=== PATIENT | female | born 1975 | race Caucasian/White ===

== ENCOUNTER 2019-01-06 15:13 | Emergency (ER) | payer SELFPAY ==
[2019-01-06 16:00] LABS: #Basophils 0.1 thou/uL (0.0-0.2); #Lymphocytes 1.7 thou/uL (1.20-3.40); #Monocytes 0.5 thou/uL (0.11-0.59); #Neutrophils 3.8 thou/uL (1.40-6.50); %Eosinophils 0.8 % (0.0-10.0); %Lymphocytes 28.1 % (21.0-51.0); %Monocytes 7.4 % (0.0-10.0); %Neutrophils 62.8 % (42.0-75.0); Hemoglobin 9.7 g/dL (12.0-16.0); Mean Corpuscular HGB CONC 31.8 g/dL (32.0-36.0); Mean Corpuscular Hemoglobin 28.5 pg (27.0-31.0); Mean Corpuscular Volume 89.7 fL (78.0-98.0); Platelet Count 267 thou/uL (130-400); RBC Distribution Width 14.1 % (11.5-14.5); Red Blood Cell (RBC) Count 3.41 mill/uL (4.20-5.40)
--- NOTE | 2019-01-06 16:13 | RAD ---
CHEST ONE VIEW: HISTORY: Chest pain. COMPARISON: None. FINDINGS: The lungs are without focal air space consolidation, pneumothorax, or effusion. The cardiac silhouet te and mediastinal contour is within normal limits. No acute osseous abnormality. IMPRESSION: No acute intrathoracic abnormality. POS: TPC
[2019-01-06 16:22] LABS: ALT (SGPT) 12 U/L (8-55); AST (SGOT) 27 U/L (5-34); Albumin 4.1 g/dL (3.5-5.0); Alkaline Phosphatase 69 U/L (40-150); Anion Gap 15 mmol/L (10-20); BUN (Urea Nitrogen) 17 mg/dL (7.0-18.7); Bilirubin, Total 0.3 mg/dL (0.2-1.2); CK (CPK) 369 U/L (29-168); Calc. Creatinine Clearance 0 mL/min (70-130); Calcium 10.4 mg/dL (7.8-10.44); Carbon Dioxide 19 mmol/L (22-29); Chloride 107 mmol/L (98-107); Estimated GFR-MDRD 80; Globulin 2.7 g/dL (2.4-3.5); Glucose 89 mg/dL (70-105); Lipase 42 U/L (8-78); Protein, Total 6.8 g/dL (6.0-8.3); Sodium 137 mmol/L (136-145)
== END 2019-01-06 19:11 | disposition home or self-care (01) ==
LOC: ERS 15:13
DX: F41.9 Anxiety disorder, unspecified (principal); F15.10 Other stimulant abuse, uncomplicated; F17.210 Nicotine dependence, cigarettes, uncomplicated; J45.909 Unspecified asthma, uncomplicated; F31.9 Bipolar disorder, unspecified; M06.9 Rheumatoid arthritis, unspecified
CPT/HCPCS: 71045; 80053; 82550; 83690; 84484; 85025; 93005

== ENCOUNTER 2019-10-07 16:26 | Inpatient (IN) | payer SELFPAY ==
[2019-10-07] MEDS ORDERED: Naloxone HCl 0.4 mg/ml Vial ONE (16:44)
[2019-10-07 16:49] LABS: Pregnancy Test - Urine (BHCG) Negative (Negative); Pregu Control Background? CLEAR/WHITE (CLR/WHITE); Pregu Control Bar Appear? YES (CONTROL BAR); Specific Gravity 1.023 (1.002-1.036)
[2019-10-07 16:53] LABS: Bacteria/HPF 4+ HPF (None Seen); Bilirubin Negative (Negative); Blood, Urine 2+ (Negative); Clarity Extra Turbid (Clear); Glucose, Urine (Dipstick) Normal (Negative); Leukocyte 500 Leu/uL (Negative); Nitrite 2+ (Negative); Protein, Urine (Dipstick) 50 mg/dL (Neg-Trace); Squamous Epithelial None Seen HPF (0-3); Urobilinogen Normal mg/dL (Less than 2); WBC/HPF Greater than 50 HPF (0-3)
[2019-10-07 16:55] LABS: Amphetamine Detected (NotDetected); Barbiturates Screen Not Detected (NotDetected); Benzodiazepine Screen Detected (NotDetected); Cocaine Metabolite Screen Not Detected (NotDetected); Medtox Control Line Valid? VALID (VALID); Medtox Reader # READER 4; Methadone Not Detected (NotDetected); Methamphetamine Detected (NotDetected); Opiate Screen Not Detected (NotDetected); Oxycodone Screen Not Detected (NotDetected); Phencyclidine (PCP) Not Detected (NotDetected); THC/Cannabinoid Screen Detected (NotDetected); Tricyclic Screen Not Detected (NotDetected)
[2019-10-07 16:55] LABS: #Lymphocytes 1.2 thou/uL (1.20-3.40); #Monocytes 0.5 thou/uL (0.11-0.59); %Basophils 0.3 % (0.0-1.0); %Eosinophils 0.2 % (0.0-10.0); %Lymphocytes 10.2 % (21.0-51.0); %Monocytes 4.6 % (0.0-10.0); %Neutrophils 84.7 % (42.0-75.0); Hemoglobin 13.9 g/dL (12.0-16.0); Mean Corpuscular HGB CONC 32.7 g/dL (32.0-36.0); Mean Corpuscular Hemoglobin 31.3 pg (27.0-31.0); Mean Corpuscular Volume 95.7 fL (78.0-98.0); Mean Platelet Volume 9.5 fL (7.4-10.4); Platelet Count 221 thou/uL (130-400); RBC Distribution Width 12.7 % (11.5-14.5); Red Blood Cell (RBC) Count 4.43 mill/uL (4.20-5.40); White Blood Cell (WBC) Count 11.8 thou/uL (4.8-10.8)
--- NOTE | 2019-10-07 16:55 | RAD ---
Chest one view HISTORY: Altered mental status. COMPARISON: 01/06/2019. FINDINGS: Cardiac silhouette is magnified by projection. Pulmonary vasculature is unremarkable. Media stinum is midline. Lung apices are partially excluded. No lobar consolidation or evidence of pneumothorax. plastic finisher leads overlie the chest. IMPRESSION: No active cardiopulmonary abnormalities are demonstrated.
--- NOTE | 2019-10-07 17:18 | CT ---
EXAM: Brain CTWithout contrast: HISTORY: Altered mental status patient found down COMPARISON: None FINDINGS: No focal mass or midline shift. No intra or extra-axial hemorrhage. Sinuses and mastoids are clear of acute process. IMPRESSION: No mass or bleed or other significant acute intracranial process.
[2019-10-07] MEDS ORDERED: cefTRIAXone\\ROCEPHIN 1 GM VIAL ONE (17:33)
[2019-10-07 17:59] LABS: Analyzer IN Cardio ER; Base Excess (BEa) -0.3 mEq/L (-2.0 to +3.0); CO2 Tension 38.1 mmHg (35.0-45.0); Calcium, Ionized 1.21 mmol/L (1.12-1.30); Carboxyhemoglobin (COHb) 1.3 gm% (0.0-3.0); Hemoglobin (Hb) 13.4 g/dL (12.0-16.0); O2 Tension (PaO2) 96.9 mmHg (80.0-100.0); Potassium - ABG Lab 4.12 mmol/L (3.70-5.30); pH, Arterial 7.42 (7.35-7.45)
[2019-10-07 18:00] LABS: Puncture Site RRA
[2019-10-07 18:01] LABS: ALV-art Gradient 5.205 (0-20)
[2019-10-07 18:24] LABS: ALT (SGPT) 15 U/L (8-55); AST (SGOT) 16 U/L (5-34); Acetaminophen Less than 6.0 mcg/mL (10.0-30.0); Albumin 3.7 g/dL (3.5-5.0); Alcohol Less than 10 mg/dL (Less than 10); Alkaline Phosphatase 71 U/L (40-110); Anion Gap 9 mmol/L (10-20); BUN (Urea Nitrogen) 13 mg/dL (7.0-18.7); Bilirubin, Total 0.4 mg/dL (0.2-1.2); CK (CPK) 107 U/L (29-168); Calc. Creatinine Clearance 0 mL/min (70-130); Calcium 9.2 mg/dL (7.8-10.44); Carbon Dioxide 27 mmol/L (22-29); Chloride 105 mmol/L (98-107); Estimated GFR-MDRD 86; Globulin 2.6 g/dL (2.4-3.5); Glucose 86 mg/dL (70-105); Potassium 4.2 mmol/L (3.5-5.1); Protein, Total 6.3 g/dL (6.0-8.3); Salicylate Less than 8.0 mg/dL (15.0-30.0); Sodium 137 mmol/L (136-145)
--- NOTE | 2019-10-07 20:24 | HP ---
PRESENTING COMPLAINT: Unresponsiveness. HISTORY OF PRESENT ILLNESS: Ms. Bettina Craig is a 44-year-old female with past medical history of presumed bipolar disorder reported by the patient's boyfriend. Not on any medication and does not follow with any physician due to financial issues. Developed altered mental status this afternoon after boyfriend found very drowsy with clammy extremities. The boyfriend has also noticed that his prescription bottle of Klonopin 1 mg when missing about 30 tablets as well as his Xanax 0.5 mg was missing also about 20 to 35 tablets. He states he does not know if the patient has any history of suicidal ideation in the past. He admitted to having quarrel with the patient earlier last night. He brought the patient to the emergency room after the patient became more unresponsive. In the ED, the patient is currently unresponsive. They put her in airway. She was started on gentle IV fluid. She is able to be aroused with sternal rub now, but still nonverbal. Boyfriend denies any previous medical history. PAST MEDICAL HISTORY: Presumed borderline hypertension. Boyfriend also state the patient reports history of bipolar disorder. PAST SURGICAL HISTORY: None known to the boyfriend. HOME MEDICATIONS: None. FAMILY HISTORY: Unable to obtain. SOCIAL HISTORY: The patient is a nonsmoker. No history of alcohol or illicit drug use. Resides in the community with a boyfriend. Works as a hotel and dining room cashier. REVIEW OF SYSTEMS: Unable to obtain given the patient's altered mental status. PHYSICAL EXAMINATION: VITAL SIGNS: Current, blood pressure of 98/77, pulse of 81, respiratory rate of 18 on nasal cannula O2, and temperature afebrile at 98. GENERAL: Middle-aged female, slightly overweight, drowsy, arousable by sternal rub by tapping. HEENT: Head is atraumatic, normocephalic. Pupils equal, reactive to light. Dry oral mucosa with no discharge. NECK: No JVD. No carotid bruit. RESPIRATORY: Good air entry bilaterally. No crepitations. CARDIOVASCULAR: S1, S2. Rate and rhythm regular. ABDOMEN: Full, soft, nontender. Bowel sounds positive. EXTREMITIES: No pedal edema. No calf tenderness. NEURO: The patient is drowsy, but more arousable during interview. LABORATORY DATA: EKG, normal sinus rhythm, no ST-segment changes. WBC 11.8, hemoglobin 13, platelets 221, neutrophils 85%. ABG; pH 7.4, pO2 of 96. Potassium 4.2, sodium 137, creatinine 0.7, lactic acid 1.1, and glucose of 86. Urinalysis shows 4+ bacteria with more than 50 wbc's. Urine drug screen positive for amphetamine and methamphetamine as well as benzodiazepine and cannabinoids. Head CT negative for any intracranial pathology. Chest x-ray shows no pulmonary infiltrate. IMPRESSION: 1. Polysubstance abuse. 2. Benzodiazepine overdose. 3. Presumed history of bipolar disorder, rule out suicidal ideation. PLAN: 1. We will admit the patient to the intensive care unit/IMCU. We will start the patient on aggressive IV hydration with D5 lactated Ringer's. Continue to monitor neuro checks. Keep the patient in restraints for now. Expected mental status to continue to improve. We will keep the patient n.p.o. for now. We can resume diet when the patient is more alert and conversant. We will consult Psych for patient prior to discharge. 2. DVT prophylaxis, subcutaneous heparin. 3. Polysubstance abuse - currently, the patient will need counseling. 4. Advance directive, unable to obtain. Boyfriend indicate full code. Total time spent on review of record, discussion with the patient greater than 60 minutes. Job ID: [id number]
[2019-10-07 21:09] LABS: Troponin I Less than 0.010 ng/mL (< 0.028)
[2019-10-07] MEDS ORDERED: Ondansetron ODT 4 MG TAB SL PRN (22:38)
[2019-10-07] MEDS ORDERED: Sodium Chloride 0.9% 1,000 ML IV SCH (22:38)
[2019-10-07] MEDS ORDERED: Ondansetron PF 4 MG/2 ML Vial IVP PRN (22:38)
[2019-10-07 23:50] LABS: Troponin I Less than 0.010 ng/mL (< 0.028)
[2019-10-08 01:27] VITALS: BMI 28.9
--- NOTE | 2019-10-08 11:08 | PDOC.HOSPP ---
- Subjective Encounter Date: 10/08/19 Encounter Time: 11:06 Subjective: minimally arousable - Objective Vital Signs & Weight: Vital Signs (12 hours) Temp Pulse Ox 10/08/19 08:00 98 10/08/19 07:08 98.6 F 10/08/19 03:38 98.4 F 10/07/19 23:43 98.3 F Weight Weight 168 lb 8 oz Most Recent Monitor Data Heart Rate from ECG 94 NIBP 114/74 NIBP BP-Mean 87 Respiration from ECG 17 SpO2 98 Result Diagrams: 10/07/19 16:47 10/07/19 17:51 Additional Labs: Accuchecks 10/07/19 16:42 POC Glucose 93 - Exam Neck: no JVD Heart: RRR, no murmur Respiratory: CTAB, no wheezes Gastrointestinal: soft, non-tender, normal bowel sounds Extremities: no edema Hosp A/P (1) Benzodiazepine overdose Code(s): T42.4X1A - POISONING BY BENZODIAZEPINES, ACCIDENTAL, INIT Status: Acute (2) Polysubstance (excluding opioids) dependence Code(s): F19.20 - OTHER PSYCHOACTIVE SUBSTANCE DEPENDENCE, UNCOMPLICATED Status: Acute - Plan in no distress or respiratory compromise FU later today
--- NOTE | 2019-10-08 19:29 | CON ---
DATE OF CONSULTATION: 10/08/2019 SERVICE: Pulmonary Medicine. REASON FOR CONSULTATION: [facility] patient. HISTORY OF PRESENT ILLNESS: The patient is a 44-year-old white female, who intentionally took multiple benzodiazepines, and other substances. She presented to the emergency department and was essentially unresponsive. It is clear that she took Xanax as well as Klonopin. She had a fight with her significant other the day before. Apparently, was over her substance abuse. Ultimately, she got a hold on his medications and took a deep nap. She was watched very closely in the [facility], where her mentation slowly improved. She denies any current suicidal ideation presently. She denies any fevers, chills, cough, sputum production, nausea, or vomiting, and prior to taking these pills, she was in her usual state of health. PAST MEDICAL HISTORY: 1. Hypertension. 2. Bipolar disorder. PAST SURGICAL HISTORY: None. FAMILY HISTORY: Noncontributory. SOCIAL HISTORY: Negative for alcohol or illicit drug use. She has no significant history of smoking. Apparently, she works as a secretary receptionist. She does use multiple substances. ALLERGIES: NO KNOWN DRUG ALLERGIES. MEDICATIONS: List of her inpatient medications was reviewed. No specific updates were made. REVIEW OF SYSTEMS: General; head, ears, eyes, nose, throat; cardiovascular; respiratory; GI; ; musculoskeletal; neurologic; and skin are negative except as mentioned in the HPI. PHYSICAL EXAMINATION: VITAL SIGNS: Afebrile. Pulse 94, blood pressure 109/76, respirations 15, saturation 98%, currently on room air. GENERAL: The patient is awake and alert, in no apparent distress. LUNGS: Wonderful air entry. There is no prolonged expiratory phase. No rhonchi, wheezing, or crackles are appreciated. HEART: Normal rate, regular. ABDOMEN: Soft, nontender, nondistended. Bowel sounds are positive. MUSCULOSKELETAL: No cyanosis or clubbing. No pitting in the bilateral lower extremities. NEUROLOGIC: Grossly nonfocal. LABORATORY DATA: WBC 11.8, hemoglobin 13.9, platelets 221,000. Neutrophil count is 85%. PH 7.42, pCO2 of 38, pO2 of 97. Basic metabolic profile, liver function studies, troponin x3, magnesium, and lactate are all unremarkable. TSH 0.8. Urinalysis is positive for significant pyuria with positive nitrites. Urine is unremarkable. Urine drug screen is positive for amphetamines, methamphetamine, benzodiazepine, and cannabinoids. Blood cultures x2 are unremarkable. IMAGING DATA: 1. CT of the brain demonstrates no acute intracranial abnormality. 2. Chest x-ray demonstrates no acute cardiopulmonary abnormality. Specifically , no infiltrating disease is appreciated. ASSESSMENT: 1. Metabolic encephalopathy. 2. Polysubstance drug abuse secondary to benzodiazepine, cannabinoids, and methamphetamine. 3. Bipolar disorder. DISCUSSION AND PLAN: The patient is doing fine from respiratory standpoint. She is being transitioned to the medical unit. When she leaves the [facility], she will have no further requirement for Pulmonary opinion and I will sign off. Please call with additional questions or concerns through time. 70 minutes have been devoted to this patient in various activities. I personally reviewed all imaging studies and laboratory data noted within this document. For fifty percent of this time, I was interacting with the patient at the bedside or coordinating care with the care team. For the remainder of the time I was immediately available to the patient in the hospital unit. Job ID: [id number] [facility]
[2019-10-08] MEDS: Cefdinir 300 MG CAP PO SCH (20:50)
[2019-10-08] MEDS ORDERED: FLU VACC QS2019-20(6MOS UP)/PF 60 MCG/0.5 ML SYRINGE IM ONE (21:00)
--- NOTE | 2019-10-09 07:39 | PDOC.HOSPP ---
- Subjective Encounter Date: 10/09/19 Encounter Time: 07:37 Subjective: awake.alert - Objective Vital Signs & Weight: Vital Signs (12 hours) Temp Pulse Resp BP Pulse Ox 10/09/19 04:00 98.1 F 76 16 112/63 93 L 10/08/19 22:30 98.1 F 89 18 107/71 95 10/08/19 20:01 98.8 F 10/08/19 20:00 100 Weight Weight 168 lb 8 oz Most Recent Monitor Data Heart Rate from ECG 93 NIBP 109/65 NIBP BP-Mean 79 Respiration from ECG 18 SpO2 97 I&O: 10/08/19 10/09/19 10/10/19 06:59 06:59 06:59 Intake Total 100 Output Total 1250 Balance -1150 Result Diagrams: 10/07/19 16:47 10/07/19 17:51 Hospitalist ROS - Medication Medications: Active Medications Generic Name Dose Route Start Last Admin Trade Name Freq PRN Reason Stop Dose Admin Cefdinir 300 mg 10/08/19 21:00 10/08/19 20:50 Omnicef PO 300 mg BID ALETHEA Administration - Exam Neck: no JVD Heart: RRR Respiratory: CTAB Gastrointestinal: soft, normal bowel sounds Extremities: no edema Hosp A/P (1) Benzodiazepine overdose Code(s): T42.4X1A - POISONING BY BENZODIAZEPINES, ACCIDENTAL, INIT Status: Acute (2) Polysubstance (excluding opioids) dependence Code(s): F19.20 - OTHER PSYCHOACTIVE SUBSTANCE DEPENDENCE, UNCOMPLICATED Status: Acute (3) UTI (urinary tract infection), bacterial Code(s): N39.0 - URINARY TRACT INFECTION, SITE NOT SPECIFIED; A49.9 - BACTERIAL INFECTION, UNSPECIFIED Status: Acute - Plan awake,alert- [facility] consult medically sttable cefdinar for UTI
[2019-10-09] MEDS: Cefdinir 300 MG CAP PO SCH (08:57)
[2019-10-09] MEDS ORDERED: Nicotine 21 MG PATCH TOP SCH (09:00)
--- NOTE | 2019-10-09 17:33 | DIS ---
DATE OF ADMISSION: 10/07/2019 DATE OF DISCHARGE: 10/09/2019 PRIMARY CARE PROVIDER: Unknown. DISPOSITION: Discharged to [facility] Unit. FINAL DIAGNOSES: Overdose by benzodiazepines, intentional; urinary tract infection. DISCHARGE MEDICATIONS: She is on Cefdinir 300 mg twice a day for three days. ALLERGIES: NONE. PENDING AT THE TIME OF DISCHARGE: Nothing. CODE STATUS: Full. DIET: As tolerated. HOSPITAL COURSE: The patient admitted to [facility] Service through [facility]. She was found to have taken thirty 1 mg Klonopin and twenty five to thirty Xanax 0.5 mg of her boyfriend's medicines. They had had a quarrel today earlier. In the emergency room, she was unresponsive. Her laboratory showed a minimally elevated white count 11.8, hemoglobin 13.9, platelet count of 221. Chemistries were normal including lactic acid. Urine showed some pus. Urine culture grew E coli, sensitive to cephalosporins. It took her about 36 hours to wake up. Upon waking up, I discussed with her that she would be evaluated by [facility]. She had a distinctly unpleasant response to that. She required security to keep her in room. She was decidedly uncooperative. She was seen by [facility]. We recommended involuntary commitment. I have discussed this case with Dr. Elizalde, phone #[phone]. He is accepting the patient to the [facility] Unit. She is being discharged to be escorted there. Job ID: [id number]
[2019-10-09 18:24] VITALS: BP 130/76; TEMP 98
== END 2019-10-09 18:28 | DRG 917 ==
LOC: ERS 16:26 → EEVIPCON 20:01 → ERHOLD 20:01 → IMCU/EMU 21:36 → T4-B 10-08 22:39
PROVIDERS: ADMIT Internal Medicine; ATTEND Internal Medicine
PROC: 3E0234Z Introduction of Serum, Toxoid and Vaccine into Muscle, Percutaneous Approach (ICD-10-PCS; principal; 2019-10-08)
PROC: 3E02340 Introduction of Influenza Vaccine into Muscle, Percutaneous Approach (ICD-10-PCS; 2019-10-08)
DX: T42.4X2A Poisoning by benzodiazepines, intentional self-harm, initial encounter (principal); G93.41 Metabolic encephalopathy; R40.2122 Coma scale, eyes open, to pain, at arrival to emergency department; N39.0 Urinary tract infection, site not specified; F13.20 Sedative, hypnotic or anxiolytic dependence, uncomplicated; F15.20 Other stimulant dependence, uncomplicated; F31.9 Bipolar disorder, unspecified; I10 Essential (primary) hypertension; F12.20 Cannabis dependence, uncomplicated; R40.2352 Coma scale, best motor response, localizes pain, at arrival to emergency department; R40.2232 Coma scale, best verbal response, inappropriate words, at arrival to emergency department; Z23 Encounter for immunization
CPT/HCPCS: 36415; 36416; 70450; 71045; 80053; 80306; 80307; 81003; 81015; 81025; 82550; 82805; 83605; 83735; 84443; 84484; 85025; 87040; 87077; 87086; 87186; 90471; 90686; 90732; 93005; A4353; G0008; G0009; J0696; J2310

== ENCOUNTER 2021-03-03 10:22 | Emergency (ER) | payer OTHER, SELFPAY ==
[2021-03-03] MEDS ORDERED: Acetaminophen 500 MG TAB ONE (11:33)
[2021-03-03] MEDS ORDERED: Ketorolac Tromethamine 30 MG/ML VIAL ONE (11:33)
== END 2021-03-03 12:32 | disposition home or self-care (01) ==
LOC: ERS 10:22
DX: R07.89 Other chest pain (principal); J45.909 Unspecified asthma, uncomplicated; M06.9 Rheumatoid arthritis, unspecified; F17.210 Nicotine dependence, cigarettes, uncomplicated; V89.2XXA Person injured in unspecified motor-vehicle accident, traffic, initial encounter
CPT/HCPCS: 71046; 93005; 96372; J1885